=== PATIENT | male | born 1955 | race Two or more races ===

== ENCOUNTER 2021-01-04 18:57 | Inpatient (IN) | payer MEDICARE, OTHER ==
[~2021-01-04] VITALS: Ht 157.5 cm; Wt 54.8 kg
[2021-01-04 22:11] LABS: Basophils # (auto) 0.1 10 ^3/uL (0-0.2); Basophils % (auto) 0.8 % (0.0-2.0); Eosinophils # (auto) 0.1 10 ^3/uL (0-0.8); Eosinophils % (auto) 1.1 % (0.0-7.0); Hematocrit 38.3 % (41.0-53.0); Hemoglobin 12.8 g/dL (13.5-17.5); Lymphocytes # (auto) 0.7 10 ^3/uL (0.4-5.4); Lymphocytes % (auto) 10.5 % (10.0-50.0); Mean Corpuscular Hemoglobin 32.7 pg (28.0-32.0); Mean Corpuscular Hgb Conc. 33.3 g/dL (32.0-36.0); Mean Corpuscular Volume 98.1 fL (80.0-100.0); Monocytes # (auto) 0.6 10 ^3/uL (0-1.3); Monocytes % (auto) 9.6 % (0.0-12.0); Neutrophils # (auto) 5.1 10 ^3/uL (1.6-8.6); Nucleated Red Blood Cells % 0.2 %; Red Blood Cells 3.91 10^6/uL (4.5-5.90); Red Cell Distribution Width 14.2 % (11.8-14.3); White Blood Cell 6.6 10^3/uL (4.4-10.8)
[2021-01-04 22:19] LABS: INR 1.49 (0.9-1.15); Partial Thromboplastin Time 31.6 sec (23.6-33.0)
[2021-01-04 22:21] LABS: Albumin 3.3 g/dL (3.4-5.0); Calcium 8.4 mg/dL (8.5-10.1); Magnesium 3.2 mg/dL (1.6-2.6); Potassium 4.4 mmol/L (3.5-5.1)
[2021-01-04 22:28] LABS: BUN/Creatinine Ratio 6.3; Bilirubin, Total 0.7 mg/dL (0.2-1.0); Total Protein 7.4 g/dL (6.4-8.2)
[2021-01-05] MEDS ORDERED: ONDANSETRON HCL 4 MG/2 ML VIAL IV PRN (04:45)
[2021-01-05] MEDS ORDERED: DEXTROSE (50%) 50ML SYRG IV PRN (04:45)
[2021-01-05] MEDS ORDERED: cloNIDine HCL 0.1 MG TAB PO PRN (04:45)
[2021-01-05] MEDS: InsuLIN REG 1unit/0.01ml Soln (100units/ml) SC SCH ×3 (06:00→18:18)
[2021-01-05] MEDS: ACCU-CHEK COMFORT CURVE STRIP VI SCH ×3 (06:18→18:18)
[2021-01-05] MEDS: SEVELAMER 800 MG TAB PO SCH ×3 (08:00→18:17)
[2021-01-05] MEDS ORDERED: hydrALAZINE HCL 20 MG/ML VL IV ONE (08:45)
[2021-01-05] MEDS ORDERED: cloNIDine HCL 0.1 MG TAB PO SCH (10:00)
[2021-01-05] MEDS ORDERED: amLODIPine BESYLATE 5 MG TAB PO SCH (10:00)
[2021-01-05] MEDS ORDERED: PANTOPRAZOLE 40 MG TAB PO SCH (10:00)
[2021-01-05] MEDS ORDERED: CARVEDILOL 12.5 MG TAB PO SCH (10:00)
[2021-01-05] MEDS ORDERED: NIFEdipine ER 30 MG TAB PO SCH (10:00)
[2021-01-05 12:53] LABS: Hepatitis A Ab IgM Negative
[2021-01-05 12:56] LABS: Hepatitis B Surface Antigen Negative (Negative)
[2021-01-05 13:00] LABS: Hepatitis B Core IgM Negative
[2021-01-05 13:23] LABS: Hepatitis C Antibody Negative (Negative)
[2021-01-05] MEDS ORDERED: hydrALAZINE HCL 25 MG TAB PO SCH (14:00)
[2021-01-05] MEDS ORDERED: ALBUMIN 25% 100 ML IV ONE (16:00)
[2021-01-05] MEDS ORDERED: ALBUMIN 5% 250 ML IV ONE (20:15)
[2021-01-05 21:12] LABS: BUN/Creatinine Ratio 6.6; Calcium 8.1 mg/dL (8.5-10.1); Potassium 4.3 mmol/L (3.5-5.1)
[2021-01-05] MEDS ORDERED: cefTRIAXone 1GM/50ML D5W 50 ML IV ONE (21:30)
[2021-01-05] MEDS ORDERED: VANCOMYCIN PER PHARMACY 0 MG IV SCH (21:30)
[2021-01-05] MEDS ORDERED: VANCOMYCIN 1GM/250ML 250 ML IV ONE (22:00)
[2021-01-05] MEDS: PANTOPRAZOLE 40 MG TAB PO SCH (22:00)
[2021-01-05] MEDS ORDERED: DOPamine 1600MCG/ML D5W 250 ML IV SCH (22:30)
[2021-01-06] MEDS: InsuLIN REG 1unit/0.01ml Soln (100units/ml) SC SCH ×4 (00:40→18:00)
[2021-01-06] MEDS: ACCU-CHEK COMFORT CURVE STRIP VI SCH ×4 (01:39→18:00)
[2021-01-06] MEDS ORDERED: SODIUM CHL 0.9% 1000 ML BAG XX ONE (07:00)
[2021-01-06 07:16] LABS: BUN/Creatinine Ratio 7.1; Calcium 8.2 mg/dL (8.5-10.1); Potassium 4.3 mmol/L (3.5-5.1)
[2021-01-06 07:19] LABS: Bilirubin, Total 0.8 mg/dL (0.2-1.0); Total Protein 7.1 g/dL (6.4-8.2)
[2021-01-06 07:34] LABS: Basophils # (auto) 0.1 10 ^3/uL (0-0.2); Basophils % (auto) 0.6 % (0.0-2.0); Eosinophils # (auto) 0.1 10 ^3/uL (0-0.8); Eosinophils % (auto) 1.2 % (0.0-7.0); Hematocrit 40.3 % (41.0-53.0); Hemoglobin 13.7 g/dL (13.5-17.5); Lymphocytes # (auto) 0.4 10 ^3/uL (0.4-5.4); Lymphocytes % (auto) 4.6 % (10.0-50.0); Mean Corpuscular Hemoglobin 33.3 pg (28.0-32.0); Mean Corpuscular Hgb Conc. 33.9 g/dL (32.0-36.0); Mean Corpuscular Volume 98.1 fL (80.0-100.0); Monocytes # (auto) 0.7 10 ^3/uL (0-1.3); Monocytes % (auto) 7.9 % (0.0-12.0); Neutrophils # (auto) 7.5 10 ^3/uL (1.6-8.6); Neutrophils % (auto) 85.7 % (37.0-80.0); Nucleated Red Blood Cells % 0.1 %; Red Blood Cells 4.11 10^6/uL (4.5-5.90); Red Cell Distribution Width 14.6 % (11.8-14.3); White Blood Cell 8.7 10^3/uL (4.4-10.8)
[2021-01-06] MEDS: SEVELAMER 800 MG TAB PO SCH ×3 (09:05→18:00)
[2021-01-06] MEDS ORDERED: PANTOPRAZOLE 40 MG TAB PO SCH (10:00)
[2021-01-06] MEDS: cefTRIAXone 1GM/50ML D5W 50 ML IV SCH (13:00)
[2021-01-06] MEDS: PANTOPRAZOLE 40 MG TAB PO SCH ×2 (13:00→22:19)
[2021-01-06] MEDS ORDERED: VANCOMYCIN 1GM/250ML 250 ML IV ONE (16:00)
[2021-01-06 21:30] VITALS: BP 134/77
[2021-01-07 05:00] VITALS: BP 139/63
[2021-01-07] MEDS: InsuLIN REG 1unit/0.01ml Soln (100units/ml) SC SCH ×5 (06:00→23:44)
[2021-01-07] MEDS: ACCU-CHEK COMFORT CURVE STRIP VI SCH ×5 (06:52→23:45)
[2021-01-07 09:00] VITALS: BP_SYST 124; BP_SYST 144; BP_DIAS 66; BP_DIAS 80
[2021-01-07] MEDS: SEVELAMER 800 MG TAB PO SCH ×3 (10:25→18:24)
[2021-01-07] MEDS: cefTRIAXone 1GM/50ML D5W 50 ML IV SCH (10:26)
[2021-01-07] MEDS: PANTOPRAZOLE 40 MG TAB PO SCH ×2 (10:26→21:29)
[2021-01-07] MEDS: ACETAMINOPHEN 325 MG TAB PO PRN (10:27)
[2021-01-07 13:00] VITALS: BP 142/61
[2021-01-07] MEDS ORDERED: HYDR50TA15 PO (15:33)
[2021-01-07] MEDS ORDERED: LOSA-69 PO (15:33)
[2021-01-07] MEDS ORDERED: AMLO-496 PO (15:34)
[2021-01-07] MEDS ORDERED: ATOR40TA52 PO (15:35)
[2021-01-07] MEDS ORDERED: CARV25TA55 PO (15:35)
[2021-01-07] MEDS ORDERED: DOXA4TAB6 PO (15:36)
[2021-01-07] MEDS ORDERED: TICA90TA PO (15:36)
[2021-01-07] MEDS ORDERED: SEVE800T8 PO (15:37)
[2021-01-07 17:00] VITALS: BP 161/75
[2021-01-07] MEDS ORDERED: NIFEdipine ER 30 MG TAB PO ONE (18:30)
[2021-01-07] MEDS: hydrALAZINE HCL 25 MG TAB PO SCH (21:29)
[2021-01-07 22:00] VITALS: BP 183/83
[2021-01-07] MEDS ORDERED: cloNIDine HCL 0.1 MG TAB PO PRN (22:45)
[2021-01-08 05:00] VITALS: BP 140/50
[2021-01-08] MEDS: hydrALAZINE HCL 25 MG TAB PO SCH ×2 (05:48→14:54)
[2021-01-08] MEDS: InsuLIN REG 1unit/0.01ml Soln (100units/ml) SC SCH ×2 (05:54→11:35)
[2021-01-08] MEDS: ACCU-CHEK COMFORT CURVE STRIP VI SCH ×3 (05:55→18:11)
[2021-01-08] MEDS: ACETAMINOPHEN 325 MG TAB PO PRN (05:56)
[2021-01-08 06:05] LABS: Basophils # (auto) 0.1 10 ^3/uL (0-0.2); Eosinophils # (auto) 0.1 10 ^3/uL (0-0.8); Hematocrit 33.3 % (41.0-53.0); Hemoglobin 11.2 g/dL (13.5-17.5); Lymphocytes # (auto) 0.5 10 ^3/uL (0.4-5.4); Lymphocytes % (auto) 8.8 % (10.0-50.0); Mean Corpuscular Hemoglobin 33.3 pg (28.0-32.0); Mean Corpuscular Hgb Conc. 33.8 g/dL (32.0-36.0); Mean Corpuscular Volume 98.7 fL (80.0-100.0); Monocytes # (auto) 0.6 10 ^3/uL (0-1.3); Monocytes % (auto) 8.9 % (0.0-12.0); Neutrophils # (auto) 4.9 10 ^3/uL (1.6-8.6); Neutrophils % (auto) 79.3 % (37.0-80.0); Red Blood Cells 3.37 10^6/uL (4.5-5.90); Red Cell Distribution Width 14.6 % (11.8-14.3); White Blood Cell 6.2 10^3/uL (4.4-10.8)
[2021-01-08] MEDS ORDERED: SODIUM CHL 0.9% 1000 ML BAG XX ONE (07:00)
[2021-01-08 09:00] VITALS: BP 144/60
[2021-01-08] MEDS ORDERED: SACUBITRIL-VALSARTAN 24mg/26mg TAB PO SCH (10:00)
[2021-01-08] MEDS ORDERED: NIFEdipine ER 30 MG TAB PO SCH (10:00)
[2021-01-08] MEDS: SEVELAMER 800 MG TAB PO SCH ×3 (11:32→18:11)
[2021-01-08] MEDS: PANTOPRAZOLE 40 MG TAB PO SCH (11:32)
[2021-01-08 12:04] VITALS: BP 150/58
[2021-01-08] MEDS ORDERED: SACU1TAB PO (16:11)
[2021-01-08] MEDS ORDERED: CARV6.25 PO (16:11)
[2021-01-08 16:49] VITALS: BP 183/70
[2021-01-08 17:30] VITALS: BP 159/69
[2021-01-08] MEDS ORDERED: EPOETIN ALFA-EPBX 10,000 UNIT/1ML VIAL SC ONE (21:00)
== END 2021-01-08 18:33 | disposition home or self-care (01) | DRG 291 ==
LOC: ER 18:59 → OVERFLOW 01-05 04:38 → TELE-WESTW 01-06 21:35
PROVIDERS: ADMIT Nurse Practitioner; ATTEND Internal Medicine
PROC: 0W9B3ZZ Drainage of Left Pleural Cavity, Percutaneous Approach (ICD-10-PCS; 2021-01-05)
PROC: 5A1D70Z Performance of Urinary Filtration, Intermittent, Less than 6 Hours Per Day (ICD-10-PCS; principal; 2021-01-06)
PROC: 5A1D70Z Performance of Urinary Filtration, Intermittent, Less than 6 Hours Per Day (ICD-10-PCS; 2021-01-08)
DX: I13.2 Hypertensive heart and chronic kidney disease with heart failure and with stage 5 chronic kidney disease, or end stage renal disease (principal); N18.6 End stage renal disease; J91.8 Pleural effusion in other conditions classified elsewhere; E46 Unspecified protein-calorie malnutrition; E87.1 Hypo-osmolality and hyponatremia; J98.11 Atelectasis; I16.0 Hypertensive urgency; I50.20 Unspecified systolic (congestive) heart failure; R62.7 Adult failure to thrive; K21.9 Gastro-esophageal reflux disease without esophagitis; I95.9 Hypotension, unspecified; D63.1 Anemia in chronic kidney disease; Z20.822 Contact with and (suspected) exposure to COVID-19; E11.21 Type 2 diabetes mellitus with diabetic nephropathy; E11.22 Type 2 diabetes mellitus with diabetic chronic kidney disease; Z99.2 Dependence on renal dialysis; Z68.22 Body mass index [BMI] 22.0-22.9, adult; Z91.15 Patient's noncompliance with renal dialysis; I42.9 Cardiomyopathy, unspecified
CPT/HCPCS: 32555; 36415; 71045; 71046; 74176; 76604; 76942; 80048; 80053; 80074; 80202; 82962; 83735; 83880; 84484; 85025; 85610; 85730; 87040; 87205; 87426; 89051; 90935; 93005; 93306; 96365; 96372; 96375; G0378; J0696; J1815; P9047

== ENCOUNTER 2022-04-01 17:15 | Emergency (ER) | payer MEDICARE, MEDICAID ==
[~2022-04-01] VITALS: Ht 165.1 cm; Wt 64.0 kg
[~2022-04-01 17:15] MED LIST: ATOR40TA52 PO; CARV6.25 PO; DOXA4TAB6 PO; HYDR50TA15 PO; SACU1TAB PO; SEVE800T8 PO; TICA90TA PO
[2022-04-01 18:01] LABS: Basophils # (auto) 0 10 ^3/uL (0-0.2); Eosinophils # (auto) 0.4 10 ^3/uL (0-0.8); Hemoglobin 13.4 g/dL (13.5-17.5); Lymphocytes # (auto) 0.4 10 ^3/uL (0.4-5.4); Nucleated Red Blood Cells % 0.1 %
[2022-04-01 18:02] LABS: Basophils % (auto) 0.6 % (0.0-2.0); Hematocrit 38.8 % (41.0-53.0); Lymphocytes % (auto) 7.4 % (10.0-50.0); Mean Corpuscular Hemoglobin 36.6 pg (28.0-32.0); Mean Corpuscular Hgb Conc. 34.4 g/dL (32.0-36.0); Mean Corpuscular Volume 106.3 fL (80.0-100.0); Monocytes # (auto) 0.6 10 ^3/uL (0-1.3); Monocytes % (auto) 10.6 % (0.0-12.0); Neutrophils # (auto) 3.8 10 ^3/uL (1.6-8.6); Neutrophils % (auto) 73.4 % (37.0-80.0); Red Blood Cells 3.66 10^6/uL (4.5-5.90); Red Cell Distribution Width 13.1 % (11.8-14.3); White Blood Cell 5.2 10^3/uL (4.4-10.8)
[2022-04-01 18:15] LABS: Albumin 3.8 g/dL (3.4-5.0); Calcium 8.3 mg/dL (8.5-10.1); Potassium 3.9 mmol/L (3.5-5.1)
[2022-04-01 18:18] LABS: BUN/Creatinine Ratio 14.3; Bilirubin, Total 0.4 mg/dL (0.2-1.0); Total Protein 7.8 g/dL (6.4-8.2)
[2022-04-01 21:00] VITALS: BP 152/72
== END 2022-04-01 21:29 | disposition home or self-care (01) ==
LOC: EDBD 17:15 → ER 17:15
DX: S20.211A Contusion of right front wall of thorax, initial encounter (principal); I12.0 Hypertensive chronic kidney disease with stage 5 chronic kidney disease or end stage renal disease; E11.22 Type 2 diabetes mellitus with diabetic chronic kidney disease; N18.6 End stage renal disease; E78.5 Hyperlipidemia, unspecified; Z99.2 Dependence on renal dialysis; Z79.899 Other long term (current) drug therapy; Z98.890 Other specified postprocedural states; W19.XXXA Unspecified fall, initial encounter; Y93.89 Activity, other specified; Y92.098 Other place in other non-institutional residence as the place of occurrence of the external cause; Y99.8 Other external cause status
CPT/HCPCS: 36415; 70450; 71101; 80053; 84484; 85025; 93005